=== PATIENT | female | born 1990 | race Two or more races ===

== ENCOUNTER 2019-01-05 08:30 | Emergency (ER) | payer MEDICAID, OTHER ==
[~2019-01-05] VITALS: Ht 157.5 cm; Wt 115.4 kg
[~2019-01-05 08:30] MED LIST: CIPR500T4 PO; FAMO-96 PO; METR-122 PO; ONDA4TAB35 PO; PNV1TABL43 PO
[2019-01-05 08:35] VITALS: BP 129/61; Ht 157.5 cm; Wt 115.4 kg
[2019-01-05] MEDS ORDERED: KETOROLAC 60 MG INJ IM STA (09:42)
[2019-01-05] MEDS ORDERED: NAPR-985 PO (09:45)
[2019-01-05] MEDS ORDERED: TRAM50TA2 PO (09:45)
[2019-01-05] MEDS ORDERED: CYCL10TA7 PO (09:45)
[2019-01-05 10:15] VITALS: PULSE 72; RESP 18
--- NOTE | 2019-01-05 11:49 | ERD ---
ER Documentation Chief Complaint Chief Complaint left leg pain x 1 month HPI 28-year-old female presenting with pain down the lateral aspect of her left leg. Denies any recent falls or injuries. States that her pain is worse with ambulation. Has not taken medications for pain. Denies medical problems. NKDA. Surgical history denies. Social history denies ROS All systems reviewed and are negative except as per history of present illness. Medications Home Meds Active Scripts Cyclobenzaprine Hcl* (Cyclobenzaprine Hcl*) 10 Mg Tablet, 10 MG PO TID, #15 TAB Prov:ABBIE PAK PA-C 01/05/19 Tramadol HCl (Tramadol HCl) 50 Mg Tablet, 50 MG PO Q4 PRN for PAIN, #20 TAB Prov:ABBIE PAK PA-C 01/05/19 Naproxen* (Naprosyn*) 500 Mg Tablet, 500 MG PO BID PRN for PAIN AND/OR INFLAMMATION, #30 TAB Prov:ABBIE PAK PA-C 01/05/19 Metronidazole* (Metronidazole*) 500 Mg Tablet, 500 MG PO Q8 for 7 Days, TAB Prov:YOANNA [employer] 11/02/15 Ciprofloxacin Hcl* (Ciprofloxacin Hcl*) 500 Mg Tablet, 500 MG PO BID, #14 TAB Prov:YOANNA [employer] 11/02/15 Famotidine* (Pepcid*) 20 Mg Tablet, 20 MG PO BID for 4 Days, TAB Prov:MARCELO CARTER [employer] 10/28/15 Ondansetron Hcl* (Zofran* ODT) 4 mg -ODT Tab.disper, 4 MG PO Q6 PRN for NAUSEA AND/OR VOMITING, #10 TAB Prov:MARCELO CARTER [employer] 10/28/15 Reported Medications Vit/Fe Fumarate/Fa* ( Vitamin Tablet*) 1 Tab Tablet, 1 TAB PO DAILY, #0 02/09/12 Allergies Allergies: Coded Allergies: Acetaminophen (Verified Allergy, Mild, 02/09/12) PMhx/Soc Anesthesia Reaction: No Hx Neurological Disorder: No Hx Respiratory Disorders: No Hx Cardiac Disorders: No Hx Psychiatric Problems: No Hx Miscellaneous Medical Probl: No Hx Alcohol Use: No Hx Substance Use: No Hx Tobacco Use: No FmHx Family History: No diabetes, No coronary disease, No other Physical Exam Vitals Vital Signs Date Temp Pulse Resp B/P (MAP) Pulse Ox O2 O2 Flow FiO2 Time Delivery Rate 01/05/19 72 18 99 Room Air 10:15 01/05/19 98.5 67 18 129/61 99 08:35 (83) Physical Exam GENERAL: The patient is well-appearing, well-nourished, in no acute distress CHEST: Clear to auscultation bilaterally. There are no rales, wheezes or rhonchi. HEART: Regular rate and rhythm. No murmurs, clicks, rubs or gallops. EXTREMITIES: Tender to palpation over lateral aspect of left leg.. No swelling. No erythema. NEUROLOGIC: Alert and oriented. Cranial nerves II through XII intact. Motor strength in all 4 extremities with 5 out of 5 strength. Sensation grossly intact. Normal speech and gait. Babinski negative. DTR 2+ throughout. SKIN: There is no apparent rash or petechiae. The skin is warm and dry. Results 24 hrs Laboratory Tests Test 01/05/19 09:50 POC Beta HCG, Qualitative NEGATIVE Current Medications Medications Dose Sig/Brittny Start Time Status Last (Trade) Ordered Route PRN Stop Time Admin Dose Reason Admin Ketorolac 60 mg ONCE STAT 01/05/19 DC 01/05/19 Tromethamine IM 09:42 10:00 (Toradol) 01/05/19 09:43 Procedures/MDM ER course: Toradol given ED. MDM: 28-year-old female presenting with leg pain. I have low suspicion for acute fracture dislocation. I have low suspicion for infectious etiology. Patient likely has IT band irritation is recommended to stretch and take medications. Patient is told symptoms change or worsen to return immediately to the ER. All questions answered at discharge Departure Diagnosis: Primary Impression: Pain of left leg Condition: Stable Patient Instructions: Leg Spasm Referrals: [facility] YOU HAVE RECEIVED A MEDICAL SCREENING EXAM AND THE RESULTS INDICATE THAT YOU DO NOT HAVE A CONDITION THAT REQUIRES URGENT TREATMENT IN THE EMERGENCY DEPARTMENT. FURTHER EVALUATION AND TREATMENT OF YOUR CONDITION CAN WAIT UNTIL YOU ARE SEEN I N YOUR DOCTORS OFFICE WITHIN THE NEXT 1-2 DAYS. IT IS YOUR RESPONSIBILITY TO MAKE AN APPOINTMENT FOR FOLOW-UP CARE. IF YOU HAVE A PRIMARY DOCTOR --you should call your primary doctor and schedule an appointment IF YOU DO NOT HAVE A PRIMARY DOCTOR YOU CAN CALL OUR PHYSICIAN REFERRAL HOTLINE AT IF YOU CAN NOT AFFORD TO SEE A PHYSICIAN YOU CAN CHOSE FROM THE FOLLOWING [facility] CL[facility] [id number] [facility] [address] [facility] [address] [facility] [address] [facility] [address] [facility]. [facility]. [address] Additional Instructions: FOLLOW UP WITH YOUR PRIMARY CARE PHYSICIAN TOMORROW.Return to this facility if you are not improving as expected. ABBIE PAK PA-C Jan 05, 2019 11:49
== END 2019-01-05 10:14 | disposition home or self-care (01) ==
LOC: FTE 08:30
DX: M79.605 Pain in left leg (principal)
CPT/HCPCS: 81025; J1885; 96372